=== PATIENT | male | born 1995 | race Hispanic/Latino ===

== ENCOUNTER 2017-06-19 16:43 | Emergency (ER) | payer OTHER ==
[2017-06-19 17:55] LABS: KETONE, URINE AUTO RFX NEGATIVE (NEGATIVE); NITRITE, URINE AUTO RFX NEGATIVE (NEGATIVE); RBC, URINE AUTO RFX 66 /HPF (0-3); SPECIFIC GRAVITY UR AUTO RFX 1.018 (1.002-1.035); SQUAM EPITHELIAL CELL UR AURFX 0 /HPF (0-6)
[2017-06-19 17:56] LABS: LEUKOCYTE ESTERASE UR AUTO RFX TRACE (NEGATIVE); WBC, URINE AUTO RFX 27 /HPF (0-3)
[2017-06-19] MEDS: cefTRIAXone SOD 250 MG VIAL (J0696) IM (19:01)
[2017-06-19] MEDS: DOXYCYCLINE HYCLATE 100 MG TAB PO (19:01)
[2017-06-19 19:23] LABS: CHLAMYDIA DNA AMPLIFICATION POSITIVE (NEGATIVE); GC DNA AMPLIFICATION NEGATIVE (NEGATIVE)
== END 2017-06-19 19:23 | disposition home or self-care (01) ==
LOC: M ED 16:43
DX: N34.1 Nonspecific urethritis (principal)
CPT/HCPCS: J0696